=== PATIENT | female | born 1935 | race Caucasian/White ===

== ENCOUNTER → 2016-10-10 | Outpatient (CLI) | payer OTHER ==
[~2016-10-10] MED LIST: ACET-1256 PO; CHOL100010 PO; CLR10 PO; COEN10CA4 PO; DIGO125T18 PO; DOCU1CAP60 PO; LINA1TAB PO; OMEG10002 PO; ROSU20TA PO; VITA400C15 PO
[2016-10-10 13:06] LABS: HEMATOCRIT 42.3 % (37-47); MEAN CELL VOLUME 88.9 fL (80-100); MEAN CORPUSCULAR HEMOGLOBIN 30.9 pg (25-34); MEAN CORPUSCULAR HGB CONC 34.8 g/dl (32-36); MEAN PLATELET VOLUME 8.7 fL (7.4-10.4); PLATELET COUNT 257 K/uL (130-400); RED BLOOD COUNT 4.76 M/uL (4.2-5.4); WHITE BLOOD COUNT 6.14 K/uL (4.8-10.8)
[2016-10-10 13:20] LABS: URINE APPEARANCE CLOUDY (CLEAR); URINE BILIRUBIN NEG (NEG); URINE COLOR YELLOW; URINE EPITHELIAL CELL AUTO >30 /lpf (0-5); URINE NITRITE NEG (NEG); URINE SPECIFIC GRAVITY 1.014 (1.000-1.030); UROBILINOGEN NEG (NEG)
[2016-10-10 13:26] LABS: MANUAL MICROSCOPIC REQUIRED? NO; REVIEW REQ? NO
[2016-10-10 13:44] LABS: ALT/SGPT 40 U/L (12-78); AST/SGOT 25 U/L (15-37); BLOOD UREA NITROGEN 23 mg/dl (7-18); BUN/CREATININE RATIO 15.4 (10-20); CALCIUM 9.1 mg/dl (8.5-10.1); CARBON DIOXIDE 24 mmol/L (21-32); CHLORIDE 108 mmol/L (98-107); GLUCOSE 85 mg/dl (70-99); SODIUM 142 mmol/L (136-145)
[2016-10-10 13:46] LABS: URINE PROTIEN/CREAT RATIO 0.2 (0-0.2); URINE TOTAL PROTEIN 40.4 mg/dl (0-11.9)
[2016-10-10 13:47] LABS: ALB/GLOB RATIO 0.9 (0.9-2); ALKALINE PHOSPHATASE 112 U/L (45-117)
== END | disposition home or self-care (01) ==
LOC: C.LAB1850 12:09
PROVIDERS: ATTEND Urology
DX: I12.9 Hypertensive chronic kidney disease with stage 1 through stage 4 chronic kidney disease, or unspecified chronic kidney disease (principal); C64.9 Malignant neoplasm of unspecified kidney, except renal pelvis; D64.9 Anemia, unspecified; E55.9 Vitamin D deficiency, unspecified; N18.3 Chronic kidney disease, stage 3 (moderate); N39.0 Urinary tract infection, site not specified

== ENCOUNTER → 2016-10-20 | Outpatient (CLI) | payer OTHER ==
--- NOTE | 2016-10-20 11:06 | DIAGNOSTIC IMAGING REPORT ---
MRI ABDOMEN WITHOUT CONTRAST CLINICAL HISTORY: C64.9 Renal cell carcinoma not claustrophobic, no metal implants, renal cell carcinoma TECHNIQUE: Imaging was performed without IV contrast enhancement. COMPARISON STUDY: 04/23/2015 FINDINGS: Study is essentially unchanged. Patient is again noted to be status post left nephrectomy. Right kidney demonstrates several small sub-5 mm cyst. There are several small hepatic cysts. All are unchanged from the prior study. Pancreas is unremarkable. Right kidney is uniform in signal character. There are no significant space-occupying lesions. There is no significant upper abdominal adenopathy. IMPRESSION: 1. Normal study status post left nephrectomy. 2. Several small right renal as well as hepatic cysts considered benign. 3. No change compared to the prior study dated 04/23/2015 Electronically signed by: Ambrosio Jeffery M.D. 10/20/2016 11:04 AM Dictated Date/Time: 10/20/2016 10:57 AM
== END | disposition home or self-care (01) ==
LOC: C.MRI 09:57
PROVIDERS: ATTEND Urology
DX: C64.9 Malignant neoplasm of unspecified kidney, except renal pelvis (principal); Z90.5 Acquired absence of kidney

== ENCOUNTER → 2017-04-24 | Outpatient (CLI) | payer OTHER ==
[2017-04-24 10:41] LABS: HEMATOCRIT 42.1 % (37-47); MEAN CELL VOLUME 93.3 fL (80-100); MEAN CORPUSCULAR HEMOGLOBIN 30.6 pg (25-34); MEAN CORPUSCULAR HGB CONC 32.8 g/dl (32-36); MEAN PLATELET VOLUME 9.1 fL (7.4-10.4); PLATELET COUNT 228 K/uL (130-400); RED BLOOD COUNT 4.51 M/uL (4.2-5.4); WHITE BLOOD COUNT 4.78 K/uL (4.8-10.8)
[2017-04-24 11:02] LABS: URINE APPEARANCE CLEAR (CLEAR); URINE BILIRUBIN NEG (NEG); URINE COLOR ORANGE; URINE NITRITE NEG (NEG); URINE SPECIFIC GRAVITY 1.019 (1.000-1.030); UROBILINOGEN NEG (NEG)
[2017-04-24 11:03] LABS: MANUAL MICROSCOPIC REQUIRED? NO; REVIEW REQ? NO
[2017-04-24 11:05] LABS: BLOOD UREA NITROGEN 27 mg/dl (7-18); CALCIUM 9.4 mg/dl (8.5-10.1); CARBON DIOXIDE 27 mmol/L (21-32); CHLORIDE 108 mmol/L (98-107); GLUCOSE 129 mg/dl (70-99); SODIUM 141 mmol/L (136-145)
[2017-04-24 11:06] LABS: PHOSPHORUS 2.9 mg/dl (2.5-4.9)
[2017-04-24 11:15] LABS: URINE PROTIEN/CREAT RATIO 0.1 (0-0.2)
== END | disposition home or self-care (01) ==
LOC: C.LAB1850 09:08
PROVIDERS: ATTEND Internal Medicine Nephrology
DX: I12.9 Hypertensive chronic kidney disease with stage 1 through stage 4 chronic kidney disease, or unspecified chronic kidney disease (principal); D64.9 Anemia, unspecified; E55.9 Vitamin D deficiency, unspecified; N18.3 Chronic kidney disease, stage 3 (moderate)

== ENCOUNTER → 2017-10-26 | Outpatient (CLI) | payer OTHER ==
[2017-10-26 12:20] LABS: HEMATOCRIT 41.4 % (37-47); HEMOGLOBIN 14.2 g/dL (12.0-16.0); MEAN CELL VOLUME 90.4 fL (80-100); MEAN CORPUSCULAR HGB CONC 34.3 g/dl (32-36); MEAN PLATELET VOLUME 9.1 fL (7.4-10.4); PLATELET COUNT 227 K/uL (130-400); RED CELL DISTRIBUTION WIDTH SD 42.9 fL (36.4-46.3); WHITE BLOOD COUNT 4.76 K/uL (4.8-10.8)
== END | disposition home or self-care (01) ==
LOC: C.LAB1850 10:29
PROVIDERS: ATTEND Internal Medicine Nephrology
DX: I12.9 Hypertensive chronic kidney disease with stage 1 through stage 4 chronic kidney disease, or unspecified chronic kidney disease (principal); C64.9 Malignant neoplasm of unspecified kidney, except renal pelvis; D64.9 Anemia, unspecified; E55.9 Vitamin D deficiency, unspecified; N18.3 Chronic kidney disease, stage 3 (moderate)

== ENCOUNTER → 2017-11-02 | Outpatient (CLI) | payer OTHER ==
[2017-11-02 15:42] LABS: ALBUMIN 3.7 gm/dl (3.4-5.0); ALT/SGPT 34 U/L (12-78); AST/SGOT 25 U/L (15-37); BLOOD UREA NITROGEN 21 mg/dl (7-18); CARBON DIOXIDE 24 mmol/L (21-32); CREATININE 1.48 mg/dl (0.60-1.20); GLUCOSE 104 mg/dl (70-99); POTASSIUM 3.8 mmol/L (3.5-5.1); SODIUM 141 mmol/L (136-145)
[2017-11-02 15:45] LABS: ALKALINE PHOSPHATASE 99 U/L (45-117); TOTAL PROTEIN 7.6 gm/dl (6.4-8.2)
== END | disposition home or self-care (01) ==
LOC: C.LAB1850 12:07
PROVIDERS: ATTEND Internal Medicine Nephrology
DX: N18.3 Chronic kidney disease, stage 3 (moderate) (principal)